=== PATIENT | female | born 1960 | race Caucasian/White ===

== ENCOUNTER 2017-09-30 07:43 | Day surgery (SDC) | payer OTHER ==
[~2017-09-30] VITALS: Ht 167.6 cm; Wt 74.8 kg
[~2017-09-30 07:43] MED LIST: CITA20 PO; DIPH50 PO; GABA300 PO; HYDACE10B PO; LORA.5 PO; METO50ER PO; Norvasc2.5 MG PO; TEMA15 PO; TIZANIDINE HCL4 MG PO
[2017-09-30] MEDS ORDERED: CALCA400CH PO (08:34)
[2017-09-30] MEDS ORDERED: Hair, Skin & N1 EACH PO (08:35)
[2017-09-30] MEDS ORDERED: ERGO400 PO (08:35)
[2017-09-30] MEDS ORDERED: MAGSULP PO (08:35)
[2017-09-30] MEDS ORDERED: ESTROVEN ENERG1 EACH PO (08:36)
== END 2017-09-30 12:28 | disposition home or self-care (01) ==
LOC: ORSCSDS 07:43
PROVIDERS: Podiatrist Foot & Ankle Surgery
PROC: 0QSN04Z Reposition Right Metatarsal with Internal Fixation Device, Open Approach (ICD-10-PCS; principal; 2017-09-30 09:30)
DX: S92.321A Displaced fracture of second metatarsal bone, right foot, initial encounter for closed fracture (principal); I10 Essential (primary) hypertension; Z79.899 Other long term (current) drug therapy
CPT/HCPCS: C1713; J0171; J0690; J1100; J2250; J2270; J2405; J3010; J7120

== ENCOUNTER 2020-09-05 11:45 | Day surgery (SDC) | payer OTHER ==
[~2020-09-05] VITALS: Ht 167.6 cm; Wt 66.2 kg
[~2020-09-05 11:45] MED LIST changes: +CALCA400CH PO; +ERGO400 PO; +ESTROVEN ENERG1 EACH PO; +Hair, Skin & N1 EACH PO; +MAGSULP PO; +TURMERIC500 M2 PO; +VITAMIN D5000 UNIT PO
== END 2020-09-05 13:26 | disposition home or self-care (01) ==
LOC: ORSCSDS 11:45
PROVIDERS: Anesthesiology
PROC: 3E0R33Z Introduction of Anti-inflammatory into Spinal Canal, Percutaneous Approach (ICD-10-PCS; principal; 2020-09-05 13:00)
DX: M51.16 Intervertebral disc disorders with radiculopathy, lumbar region (principal); I10 Essential (primary) hypertension; Z79.899 Other long term (current) drug therapy
CPT/HCPCS: J1040

== ENCOUNTER 2021-02-12 08:19 | Day surgery (SDC) | payer OTHER ==
[~2021-02-12] VITALS: Ht 167.6 cm; Wt 62.4 kg
[2021-02-12] MEDS ORDERED: AMLO5 (09:04)
[2021-02-12] MEDS ORDERED: FISH OIL 1,2001 EAC7 (09:04)
== END 2021-02-12 10:04 | disposition home or self-care (01) ==
LOC: ORSCSDS 08:19
PROVIDERS: Anesthesiology
PROC: 3E0R33Z Introduction of Anti-inflammatory into Spinal Canal, Percutaneous Approach (ICD-10-PCS; principal; 2021-02-12 09:30)
DX: M51.16 Intervertebral disc disorders with radiculopathy, lumbar region (principal); I10 Essential (primary) hypertension; Z79.899 Other long term (current) drug therapy
CPT/HCPCS: J1040

== ENCOUNTER 2021-06-19 09:21 | Day surgery (SDC) | payer OTHER ==
[~2021-06-19] VITALS: Ht 170.2 cm; Wt 61.0 kg
[~2021-06-19 09:21] MED LIST changes: +AMLO5; +FISH OIL 1,2001 EAC7
== END 2021-06-19 10:50 | disposition home or self-care (01) ==
LOC: ORSCSDS 09:21
PROVIDERS: Anesthesiology
PROC: 3E0R33Z Introduction of Anti-inflammatory into Spinal Canal, Percutaneous Approach (ICD-10-PCS; principal; 2021-06-19 10:30)
DX: M51.16 Intervertebral disc disorders with radiculopathy, lumbar region (principal); M54.50 Low back pain, unspecified; Z79.899 Other long term (current) drug therapy
CPT/HCPCS: J1040

== ENCOUNTER 2021-10-01 12:50 | Day surgery (SDC) | payer OTHER ==
[~2021-10-01] VITALS: Ht 167.6 cm; Wt 63.1 kg
[2021-10-01] MEDS ORDERED: BENADRYL25 MG PO (13:19)
[2021-10-01] MEDS ORDERED: IBUP400 PO (13:19)
--- NOTE | 2021-10-01 13:20 | NUR ---
10/01/21 1320 Armida Westfall CALL LIGHT WITHIN REACH
== END 2021-10-01 14:34 | disposition home or self-care (01) ==
LOC: ORSCSDS 12:50
PROVIDERS: Anesthesiology
PROC: 3E0R33Z Introduction of Anti-inflammatory into Spinal Canal, Percutaneous Approach (ICD-10-PCS; principal; 2021-10-01 14:15)
DX: M51.16 Intervertebral disc disorders with radiculopathy, lumbar region (principal); Z79.899 Other long term (current) drug therapy
CPT/HCPCS: J1040